=== PATIENT | male | born 1940 | race Asian ===

== ENCOUNTER 2017-05-01 10:48 | Inpatient (IN) | payer MEDICARE, OTHER ==
[~2017-05-01] VITALS: Ht 172.7 cm; Wt 97.6 kg
[~2017-05-01 10:48] MED LIST: ACET-2247 PO; ASPI-1182 PO; ATOR40TA28 PO; DSS100 PO; EPOE10I SQ; ERGO500014 PO; FOLI1CAP2 PO; FURO40 PO; GABA-529 PO; LACT30L PO; LIDO700A15 TP; METO25XL PO; MUPI1OIN4 NS; PHOSLOC PO
[2017-05-01 11:03] LABS: GLUCOSE,POINT OF CARE 127 MG/DL (70-110)
[2017-05-01 13:32] LABS: BASOPHILS % (AUTO) 0.2 % (0.0-2.0); EOSINOPHILS % (AUTO) 1.9 % (1.0-6.0); HEMATOCRIT 32.7 % (41-53); HEMOGLOBIN 11.2 g/dL (13.5-17.5); LYMPHOCYTES # (AUTO) 0.4 K/uL (1.0-4.8); LYMPHOCYTES % (AUTO) 9.2 % (22.0-44.0); MEAN CORPUSCULAR HEMOGLOBIN 33.5 pg (26.0-34.0); MEAN CORPUSCULAR HGB CONC 34.2 G/dL (31.0-37.0); MEAN CORPUSCULAR VOLUME 98 fL (80-100); MONOCYTES # (AUTO) 0.4 K/uL (0.1-1.0); MONOCYTES % (AUTO) 10.5 % (2.0-9.0); NEUTROPHILS # (AUTO) 3.2 K/uL (1.8-7.7); NEUTROPHILS % (AUTO) 78.2 % (40.0-70.0); RED BLOOD CELL COUNT(AUTO) 3.34 MIL/uL (4.50-5.90); RED CELL DISTRIBUTION WIDTH 15.1 % (11.5-14.5); WHITE BLOOD COUNT (AUTO) 4.1 K/uL (4.5-11.0)
[2017-05-01 13:34] LABS: CALCIUM, TOTAL 8.3 mg/dL (8.8-10.5); CREATININE 3.06 mg/dL (0.60-1.30); POTASSIUM 3.8 mmol/L (3.5-5.1)
[2017-05-01 13:41] LABS: LACTIC ACID 0.9 mmol/L (0.4-2.0)
[2017-05-01 13:46] LABS: TROPONIN I 0.04 ng/mL (0.00-0.05)
[2017-05-01 13:47] LABS: ALBUMIN 2.6 g/dL (3.4-5.0); BILIRUBIN,TOTAL 0.9 mg/dL (0.1-1.0); TOTAL PROTEIN, SERUM 6.2 g/dL (6.4-8.2)
[2017-05-01 14:00] LABS: PLATELET COUNT (AUTO) 84 K/uL (150-450)
[2017-05-01] MEDS ORDERED: ACETAMINOPHEN 325 MG TABLET PO PRN (15:15)
[2017-05-01] MEDS ORDERED: ONDANSETRON HCL 4 MG/2 ML VIAL IVP PRN (15:15)
[2017-05-01] MEDS ORDERED: 0.9% SODIUM CHLORIDE 10 ML SYRINGE IVP PRN (15:15)
[2017-05-01 15:34] LABS: INFLUENZA TYPE B NEGATIVE FOR TYPE B (NEGATIVE)
[2017-05-01 16:45] VITALS: BP 133/74
[2017-05-01 18:02] LABS: GLUCOSE,POINT OF CARE 109 MG/DL (70-110)
[2017-05-01 18:38] LABS: APPEARANCE,URINE CLOUDY (CLEAR); GLUCOSE, URINE (UA) NEGATIVE (NEGATIVE); KETONES,URINE NEGATIVE (NEGATIVE); LEUKOCYTE ESTERASE ,URINE MODERATE (NEGATIVE); OCCULT BLOOD,URINE SMALL (NEGATIVE); PH,URINE 7.5 (5.0-8.0); PROTEIN,URINE SEE CONFIRM (NEGATIVE)
[2017-05-01 18:39] LABS: ADD UA MICROSCOPIC YES
[2017-05-01 18:47] LABS: SQUAMOUS EPITHELIAL CELL,UR Few /LPF (None Seen); SULFOSALICYLIC ACID,URINE 3+ (Negative); WBC,URINE 26-50 /HPF (0-5)
[2017-05-01 18:48] VITALS: BP 156/84
[2017-05-01 19:30] VITALS: BP 150/67
[2017-05-02 00:06] VITALS: BP 105/53
[2017-05-02] MEDS ORDERED: SODIUM CHLORIDE 0.9% 500 ML IV ONE (00:15)
[2017-05-02 00:42] LABS: GLUCOSE,POINT OF CARE 105 MG/DL (70-110)
[2017-05-02] MEDS: CefTRIAXone 1 GM/DEXTROSE 50 ML IV SCH ×2 (01:10→23:58)
[2017-05-02] MEDS ORDERED: MUPIROCIN CALCIUM 2% 22 GM OINTMENT NASAL SCH (01:15)
[2017-05-02] MEDS ORDERED: ACETAMINOPHEN 325 MG TABLET PO PRN (01:15)
[2017-05-02] MEDS ORDERED: LACTULOSE 20 GM/30 ML SOLUTION UDCUP PO SCH (01:15)
[2017-05-02] MEDS ORDERED: FUROSEMIDE 40 MG TABLET PO SCH ×2 (01:15→09:00)
[2017-05-02] MEDS ORDERED: DOCUSATE SODIUM 100 MG CAPSULE PO SCH ×3 (01:15→09:00)
[2017-05-02] MEDS ORDERED: ONDANSETRON HCL 4 MG/2 ML VIAL IVP PRN (01:30)
[2017-05-02] MEDS ORDERED: 0.9% SODIUM CHLORIDE 10 ML SYRINGE IVP PRN (01:30)
[2017-05-02] MEDS ORDERED: OxyCODONE HCL/ACETAMINOPHEN 5-325 MG TABLET PO PRN ×2 (01:30)
[2017-05-02 05:18] VITALS: BP 131/83
[2017-05-02] MEDS: LACTULOSE 20 GM/30 ML SOLUTION UDCUP PO SCH ×4 (06:09→20:14)
[2017-05-02 06:44] LABS: BASOPHILS % (AUTO) 0.5 % (0.0-2.0); EOSINOPHILS % (AUTO) 2.9 % (1.0-6.0); HEMATOCRIT 30.1 % (41-53); HEMOGLOBIN 10.5 g/dL (13.5-17.5); LYMPHOCYTES # (AUTO) 0.6 K/uL (1.0-4.8); LYMPHOCYTES % (AUTO) 16.3 % (22.0-44.0); MEAN CORPUSCULAR HEMOGLOBIN 34.3 pg (26.0-34.0); MEAN CORPUSCULAR HGB CONC 34.8 G/dL (31.0-37.0); MEAN CORPUSCULAR VOLUME 99 fL (80-100); MONOCYTES # (AUTO) 0.5 K/uL (0.1-1.0); MONOCYTES % (AUTO) 12.9 % (2.0-9.0); NEUTROPHILS # (AUTO) 2.4 K/uL (1.8-7.7); NEUTROPHILS % (AUTO) 67.4 % (40.0-70.0); PLATELET COUNT (AUTO) 82 K/uL (150-450); RED BLOOD CELL COUNT(AUTO) 3.05 MIL/uL (4.50-5.90); RED CELL DISTRIBUTION WIDTH 15.4 % (11.5-14.5); WHITE BLOOD COUNT (AUTO) 3.6 K/uL (4.5-11.0)
[2017-05-02 07:12] LABS: ALBUMIN 2.4 g/dL (3.4-5.0); BILIRUBIN,TOTAL 0.8 mg/dL (0.1-1.0); CALCIUM, TOTAL 8.1 mg/dL (8.8-10.5); CREATININE 3.91 mg/dL (0.60-1.30); POTASSIUM 3.8 mmol/L (3.5-5.1); TOTAL PROTEIN, SERUM 5.7 g/dL (6.4-8.2)
[2017-05-02 07:44] VITALS: BP 115/55
[2017-05-02] MEDS: PANTOPRAZOLE SODIUM 40 MG/VIAL IVP SCH (08:17)
[2017-05-02] MEDS: ASPIRIN 81 MG EC TABLET PO SCH (08:18)
[2017-05-02] MEDS: VITAMIN B COMP/VIT C/FOLIC ACID CAPSULE PO SCH (08:18)
[2017-05-02] MEDS: LIDOCAINE HCL 5% TRANSDERMAL PATCH TD SCH (08:19)
[2017-05-02] MEDS: CALCIUM ACETATE 667 MG CAPSULE PO SCH ×2 (08:19→17:53)
[2017-05-02] MEDS: METOPROLOL SUCCINATE 25 MG ER TABLET PO SCH (08:20)
[2017-05-02] MEDS: MUPIROCIN CALCIUM 2% 22 GM OINTMENT NASAL SCH ×2 (08:20→20:28)
[2017-05-02] MEDS: FUROSEMIDE 40 MG TABLET PO SCH ×2 (09:00→20:14)
[2017-05-02] MEDS ORDERED: ERGOCALCIFEROL (VIT D2) 50,000 UNITS CAPSULE PO SCH (09:00)
[2017-05-02 15:29] VITALS: BP 136/67
[2017-05-02 20:00] VITALS: BP 143/66
[2017-05-02] MEDS: GABAPENTIN 100 MG CAPSULE PO SCH (20:14)
[2017-05-02] MEDS: ATORVASTATIN CALCIUM 40 MG TABLET PO SCH (20:14)
[2017-05-02] MEDS ORDERED: -LIDODERM PATCH NOTE- MISC SCH ×2 (21:00)
[2017-05-02 23:49] VITALS: BP 142/80
[2017-05-03 04:00] VITALS: BP 131/68
[2017-05-03 05:30] LABS: BASOPHILS % (AUTO) 0.3 % (0.0-2.0); EOSINOPHILS % (AUTO) 3.6 % (1.0-6.0); HEMATOCRIT 30.9 % (41-53); HEMOGLOBIN 10.7 g/dL (13.5-17.5); LYMPHOCYTES # (AUTO) 0.6 K/uL (1.0-4.8); LYMPHOCYTES % (AUTO) 14.8 % (22.0-44.0); MEAN CORPUSCULAR HGB CONC 34.6 G/dL (31.0-37.0); MEAN CORPUSCULAR VOLUME 98 fL (80-100); MONOCYTES # (AUTO) 0.5 K/uL (0.1-1.0); MONOCYTES % (AUTO) 12.5 % (2.0-9.0); NEUTROPHILS # (AUTO) 2.8 K/uL (1.8-7.7); NEUTROPHILS % (AUTO) 68.8 % (40.0-70.0); PLATELET COUNT (AUTO) 83 K/uL (150-450); RED BLOOD CELL COUNT(AUTO) 3.14 MIL/uL (4.50-5.90); RED CELL DISTRIBUTION WIDTH 15.9 % (11.5-14.5); WHITE BLOOD COUNT (AUTO) 4.1 K/uL (4.5-11.0)
[2017-05-03 05:33] LABS: CALCIUM, TOTAL 8.4 mg/dL (8.8-10.5); CREATININE 5.01 mg/dL (0.60-1.30)
[2017-05-03 07:33] VITALS: BP 114/51
[2017-05-03] MEDS: LACTULOSE 20 GM/30 ML SOLUTION UDCUP PO SCH ×4 (08:32→20:35)
[2017-05-03] MEDS: METOPROLOL SUCCINATE 25 MG ER TABLET PO SCH (08:32)
[2017-05-03] MEDS: FUROSEMIDE 40 MG TABLET PO SCH ×2 (08:32→20:35)
[2017-05-03] MEDS: CALCIUM ACETATE 667 MG CAPSULE PO SCH ×2 (08:32→17:59)
[2017-05-03] MEDS: PANTOPRAZOLE SODIUM 40 MG/VIAL IVP SCH (08:32)
[2017-05-03] MEDS: VITAMIN B COMP/VIT C/FOLIC ACID CAPSULE PO SCH (08:33)
[2017-05-03] MEDS: ASPIRIN 81 MG EC TABLET PO SCH (08:34)
[2017-05-03] MEDS: LIDOCAINE HCL 5% TRANSDERMAL PATCH TD SCH ×2 (08:34→08:42)
[2017-05-03] MEDS: MUPIROCIN CALCIUM 2% 22 GM OINTMENT NASAL SCH ×2 (08:44→20:35)
[2017-05-03] MEDS: EPOETIN ALFA 10,000 UNITS/ML VIAL SQ SCH (10:35)
[2017-05-03 12:00] VITALS: BP 131/71
[2017-05-03 15:21] VITALS: BP 139/61
[2017-05-03 19:40] VITALS: BP 139/71
[2017-05-03] MEDS: ATORVASTATIN CALCIUM 40 MG TABLET PO SCH (20:35)
[2017-05-03] MEDS: GABAPENTIN 100 MG CAPSULE PO SCH (20:35)
[2017-05-03 23:08] VITALS: BP 135/65
[2017-05-04] MEDS: CefTRIAXone 1 GM/DEXTROSE 50 ML IV SCH (00:40)
[2017-05-04 04:00] VITALS: BP 141/70
[2017-05-04 07:04] LABS: CALCIUM, TOTAL 8.4 mg/dL (8.8-10.5); CREATININE 6.09 mg/dL (0.60-1.30); MAGNESIUM 2.3 mg/dL (1.80-2.40); PHOSPHORUS 4.1 mg/dL (2.5-4.9); POTASSIUM 4.2 mmol/L (3.5-5.1)
[2017-05-04 07:15] VITALS: BP 129/66
[2017-05-04] MEDS: PANTOPRAZOLE SODIUM 40 MG/VIAL IVP SCH (08:36)
[2017-05-04] MEDS: LACTULOSE 20 GM/30 ML SOLUTION UDCUP PO SCH ×3 (08:36→17:46)
[2017-05-04] MEDS: ASPIRIN 81 MG EC TABLET PO SCH (08:36)
[2017-05-04] MEDS: CALCIUM ACETATE 667 MG CAPSULE PO SCH ×2 (08:36→17:45)
[2017-05-04] MEDS: VITAMIN B COMP/VIT C/FOLIC ACID CAPSULE PO SCH (08:36)
[2017-05-04] MEDS: MUPIROCIN CALCIUM 2% 22 GM OINTMENT NASAL SCH ×2 (08:38→20:18)
[2017-05-04] MEDS: LIDOCAINE HCL 5% TRANSDERMAL PATCH TD SCH (08:39)
[2017-05-04] MEDS: FUROSEMIDE 40 MG TABLET PO SCH ×2 (08:45→20:18)
[2017-05-04] MEDS: METOPROLOL SUCCINATE 25 MG ER TABLET PO SCH (08:45)
[2017-05-04 11:20] VITALS: BP 136/64
[2017-05-04] MEDS ORDERED: SODIUM CHLORIDE 0.9% 2,000 ML IV ONE (11:34)
[2017-05-04] MEDS: RIFAXIMIN 550 MG TABLET PO SCH ×2 (15:35→23:41)
[2017-05-04 15:37] VITALS: BP 148/82
[2017-05-04] MEDS ORDERED: MANNITOL 25%-12.5 GM/50 ML VIAL IVP PRN (17:00)
[2017-05-04 20:00] VITALS: BP 130/61
[2017-05-04] MEDS: GABAPENTIN 100 MG CAPSULE PO SCH (20:18)
[2017-05-04] MEDS: ATORVASTATIN CALCIUM 40 MG TABLET PO SCH (20:18)
[2017-05-04 23:30] VITALS: BP 149/68
[2017-05-05] MEDS: CefTRIAXone 1 GM/DEXTROSE 50 ML IV SCH (01:31)
[2017-05-05 05:00] VITALS: BP 146/79
[2017-05-05] MEDS: LACTULOSE 20 GM/30 ML SOLUTION UDCUP PO SCH ×3 (06:00→12:00)
[2017-05-05 07:33] VITALS: BP 134/62
[2017-05-05] MEDS: PANTOPRAZOLE SODIUM 40 MG/VIAL IVP SCH (07:53)
[2017-05-05] MEDS: FUROSEMIDE 40 MG TABLET PO SCH (07:53)
[2017-05-05] MEDS: ASPIRIN 81 MG EC TABLET PO SCH (07:53)
[2017-05-05] MEDS: VITAMIN B COMP/VIT C/FOLIC ACID CAPSULE PO SCH (07:53)
[2017-05-05] MEDS: CALCIUM ACETATE 667 MG CAPSULE PO SCH (07:53)
[2017-05-05] MEDS ORDERED: LEVO500 PO (07:57)
[2017-05-05] MEDS: RIFAXIMIN 550 MG TABLET PO SCH (07:57)
[2017-05-05] MEDS ORDERED: RIFAX550 PO (07:57)
[2017-05-05] MEDS: MUPIROCIN CALCIUM 2% 22 GM OINTMENT NASAL SCH (07:57)
[2017-05-05] MEDS: METOPROLOL SUCCINATE 25 MG ER TABLET PO SCH (07:57)
[2017-05-05] MEDS: LIDOCAINE HCL 5% TRANSDERMAL PATCH TD SCH (07:59)
[2017-05-05] MEDS: EPOETIN ALFA 10,000 UNITS/ML VIAL SQ SCH (09:49)
[2017-05-05 11:33] VITALS: BP 128/66
== END 2017-05-05 15:15 | disposition home or self-care (01) | DRG 640 ==
LOC: EMS 10:50 → 6N 15:12
PROVIDERS: ADMIT Internal Medicine; ATTEND Internal Medicine
PROC: 5A1D70Z Performance of Urinary Filtration, Intermittent, Less than 6 Hours Per Day (ICD-10-PCS; principal; 2017-05-04)
DX: E87.70 Fluid overload, unspecified (principal); N18.6 End stage renal disease; I13.2 Hypertensive heart and chronic kidney disease with heart failure and with stage 5 chronic kidney disease, or end stage renal disease; E11.22 Type 2 diabetes mellitus with diabetic chronic kidney disease; E11.51 Type 2 diabetes mellitus with diabetic peripheral angiopathy without gangrene; I48.91 Unspecified atrial fibrillation; N39.0 Urinary tract infection, site not specified; D64.9 Anemia, unspecified; R53.1 Weakness; E78.5 Hyperlipidemia, unspecified; I25.10 Atherosclerotic heart disease of native coronary artery without angina pectoris; I50.9 Heart failure, unspecified; Z79.82 Long term (current) use of aspirin; Z79.899 Other long term (current) drug therapy; Z95.1 Presence of aortocoronary bypass graft; Z99.2 Dependence on renal dialysis; Z88.8 Allergy status to other drugs, medicaments and biological substances; Z22.322 Carrier or suspected carrier of Methicillin resistant Staphylococcus aureus
CPT/HCPCS: 82962; 83605; 83735; 84100; 87040; 87081; 87086; 87340; 87804; 90935; 93005; 99285; C9113; J0696; J0885; J7030; J7040

== ENCOUNTER 2019-02-11 16:34 | Emergency (ER) | payer MEDICARE, OTHER ==
[~2019-02-11] VITALS: Ht 182.9 cm; Wt 85.5 kg
[~2019-02-11 16:34] MED LIST changes: -DSS100 PO; +LEVO500 PO; +RIFAX550 PO
[2019-02-11 17:10] LABS: GLUCOSE,POINT OF CARE 120 MG/DL (70-110)
[2019-02-11] MEDS ORDERED: FAMOTIDINE 10 MG/ML 2 ML VIAL IVP ONE (18:00)
[2019-02-11] MEDS ORDERED: PANTOPRAZOLE SODIUM 40 MG/VIAL IVP ONE (18:00)
[2019-02-11 18:25] LABS: BASOPHILS % (AUTO) 1.2 % (0.0-2.0); EOSINOPHILS % (AUTO) 2.6 % (1.0-6.0); HEMOGLOBIN 11.4 g/dL (13.5-17.5); LYMPHOCYTES # (AUTO) 0.4 K/uL (1.0-4.8); LYMPHOCYTES % (AUTO) 8.3 % (22.0-44.0); MEAN CORPUSCULAR HEMOGLOBIN 31.4 pg (26.0-34.0); MEAN CORPUSCULAR HGB CONC 32.6 G/dL (31.0-37.0); MEAN CORPUSCULAR VOLUME 96 fL (80-100); MONOCYTES # (AUTO) 0.4 K/uL (0.1-1.0); MONOCYTES % (AUTO) 8.6 % (2.0-9.0); NEUTROPHILS # (AUTO) 3.9 K/uL (1.8-7.7); NEUTROPHILS % (AUTO) 79.3 % (40.0-70.0); PLATELET COUNT (AUTO) 139 K/uL (150-450); RED BLOOD CELL COUNT(AUTO) 3.63 MIL/uL (4.50-5.90); RED CELL DISTRIBUTION WIDTH 14.6 % (11.5-14.5)
[2019-02-11 18:38] LABS: PROTHROMBIN TIME 10.8 SEC (9.4-11.6)
[2019-02-11 18:39] LABS: CALCIUM, TOTAL 7.9 mg/dL (8.8-10.5); CREATININE 5.75 mg/dL (0.60-1.30); POTASSIUM 4.5 mmol/L (3.5-5.1)
[2019-02-11 18:46] LABS: ALBUMIN 1.8 g/dL (3.4-5.0); BILIRUBIN,TOTAL 1.1 mg/dL (0.1-1.0); TOTAL PROTEIN, SERUM 5.4 g/dL (6.4-8.2)
[2019-02-11] MEDS ORDERED: ONDANSETRON HCL 4 MG/2 ML VIAL IVP PRN (21:45)
[2019-02-11] MEDS ORDERED: 0.9% SODIUM CHLORIDE 10 ML SYRINGE IVP PRN (21:45)
[2019-02-11] MEDS ORDERED: ACETAMINOPHEN 325 MG TABLET PO PRN (21:45)
[2019-02-11 22:18] LABS: GLUCOSE,POINT OF CARE 97 MG/DL (70-110)
[2019-02-11 22:46] VITALS: BP 138/72
== END 2019-02-11 22:49 | disposition left against medical advice (07) ==
LOC: EMS 16:41
DX: K92.1 Melena (principal); K92.2 Gastrointestinal hemorrhage, unspecified; I11.0 Hypertensive heart disease with heart failure; I50.9 Heart failure, unspecified; E11.9 Type 2 diabetes mellitus without complications; Z88.8 Allergy status to other drugs, medicaments and biological substances; Z79.82 Long term (current) use of aspirin
CPT/HCPCS: 36415; 80053; 82270; 82962; 83690; 85025; 85610; 85730; 86850; 86900; 86901; 93005; 96374; 96375; 99285; C9113; J3490

== ENCOUNTER 2019-05-13 14:25 | Emergency (ER) | payer MEDICARE, OTHER ==
[~2019-05-13 14:25] MED LIST changes: -ATOR40TA28 PO; -EPOE10I SQ; -ERGO500014 PO; -FOLI1CAP2 PO; -FURO40 PO; -GABA-529 PO; -LACT30L PO; -LEVO500 PO; -LIDO700A15 TP; -METO25XL PO; -MUPI1OIN4 NS; -RIFAX550 PO
[2019-05-13 14:46] LABS: ABG A-A DIFF O2 568.1 mmHg (10-20.0); ABG BASE EXCESS -10.6 mmol/L (-2.0-3.0); ABG CARBOXYHEMOGLOBIN 1.2 % (0.0-1.5); ABG HCO3 14.6 mmol/L (22.0-26.0); ABG METHEMOGLOBIN 0.3 % (0.0-1.5); ABG OXYGEN CONTENT 7.6 mL/dL (15.0-23.0); ABG OXYHEMOGLOBIN 51.4 % (94.0-100.0); ABG TOTAL HEMOGLOBIN 10.4 G/dL (12.0-18.0); PO2, ARTERIAL BG 43.5 mmHg (75.0-83.0); SOURCE, BLOOD GAS ARTERIAL; TEMPERATURE, FAHRENHEIT, BG 98.6 FAHREN (96.0-98.6)
[2019-05-13 14:48] LABS: ABG PH 6.945 (7.35-7.450); HEMATOCRIT 26.2 % (41-53); HEMOGLOBIN 8.2 g/dL (13.5-17.5); MEAN CORPUSCULAR HEMOGLOBIN 32.1 pg (26.0-34.0); MEAN CORPUSCULAR HGB CONC 31.5 G/dL (31.0-37.0); MEAN CORPUSCULAR VOLUME 102 fL (80-100); PLATELET COUNT (AUTO) 142 K/uL (150-450); RED BLOOD CELL COUNT(AUTO) 2.57 MIL/uL (4.50-5.90); RED CELL DISTRIBUTION WIDTH 16.7 % (11.5-14.5)
[2019-05-13 14:49] LABS: ABG OXYGEN SATURATION 52.2 % (95.0-98.0); ABG PCO2 101 mmHg (35-45)
[2019-05-13 14:50] LABS: O2 DEVICE,BLOOD GAS OTHER (ROOM AIR)
[2019-05-13 14:51] LABS: SITE, BLOOD GAS RT FEMORAL
[2019-05-13 15:00] LABS: ALBUMIN 1.1 g/dL (3.4-5.0); BILIRUBIN,TOTAL 0.8 mg/dL (0.1-1.0); CREATININE 4.65 mg/dL (0.60-1.30); INR 1.8 (0.9-1.1); POTASSIUM 5.9 mmol/L (3.5-5.1); PROTHROMBIN TIME 17.9 SEC (9.4-11.6)
[2019-05-13] MEDS ORDERED: AMIODARONE HCL 360 MG in DEXTROSE 5%-WATER 242.8 ML IV ONE (15:00)
[2019-05-13] MEDS ORDERED: AMIODARONE HCL 150 MG in DEXTROSE 5%-WATER 97 ML IV ONE (15:00)
[2019-05-13] MEDS ORDERED: CefTRIAXone 1 GM/DEXTROSE 50 ML IV SCH (15:00)
[2019-05-13 15:07] LABS: CALCIUM, TOTAL 17.4 mg/dL (8.8-10.5)
[2019-05-13 15:36] LABS: ABG A-A DIFF O2 269.4 mmHg (10-20.0); ABG BASE EXCESS -7.5 mmol/L (-2.0-3.0); ABG CARBOXYHEMOGLOBIN 1.3 % (0.0-1.5); ABG HCO3 18.5 mmol/L (22.0-26.0); ABG METHEMOGLOBIN 0.3 % (0.0-1.5); ABG OXYGEN CONTENT 18.6 mL/dL (15.0-23.0); ABG OXYGEN SATURATION 99.7 % (95.0-98.0); ABG OXYHEMOGLOBIN 98.1 % (94.0-100.0); ABG PCO2 47 mmHg (35-45); ABG PH 7.246 (7.35-7.450); ABG TOTAL HEMOGLOBIN 12.7 G/dL (12.0-18.0); PO2, ARTERIAL BG 397.1 mmHg (75.0-83.0); SOURCE, BLOOD GAS ARTERIAL; TEMPERATURE, FAHRENHEIT, BG 98.6 FAHREN (96.0-98.6)
[2019-05-13 15:39] LABS: BAND NEUTROPHILS % (MANUAL) 13 % (0-5); EOSINOPHILS % (MANUAL) 1 % (1-6); LYMPHOCYTES % (MANUAL) 7 % (22-44); MONOCYTES % (MANUAL) 7 % (2-9); REACTIVE LYMPHOCYTES 5 % (0-0); SEGMENTED NEUTROPHILS % 67 % (40-70)
[2019-05-13 15:41] LABS: PLATELET MORPHOLOGY COMMENT NORMAL
[2019-05-13] MEDS: PHENYLEPHRINE 200 MG/D5%-WATER 250 ML IV PRN (15:47)
[2019-05-13] MEDS: DOPamine HCL 400 MG/D5%-WATER 250 ML IV PRN (15:48)
[2019-05-13] MEDS: NOREPINEPHRINE 4 MG/D5%-WATER 250 ML IV PRN (15:56)
[2019-05-13] MEDS ORDERED: MetroNIDAZOLE 500 MG/NACL 100 ML IV SCH (16:00)
[2019-05-13] MEDS ORDERED: PROPOFOL 1000 MG/ISO-OSM 100 ML IV ONE (17:06)
[2019-05-13] MEDS ORDERED: VASOPRESSIN 40 UNITS in DEXTROSE 5%-WATER 98 ML IV PRN (17:15)
[2019-05-13] MEDS ORDERED: PROPOFOL 1000 MG/ISO-OSM 100 ML IV PRN (17:15)
[2019-05-13 17:19] LABS: O2 DEVICE,BLOOD GAS VENTILATOR (ROOM AIR); SITE, BLOOD GAS RT RADIAL
[2019-05-13 17:20] LABS: PEEP,BG 5 cm H2O; SPONTANEOUS VT, BG 453 ml; VT, ABG 450 ml
[2019-05-13 17:34] VITALS: BP 54/31
[2019-05-13] MEDS ORDERED: CALCIUM CHLORIDE 100 MG/ML 10 ML SYRINGE IVP ONE (17:48)
[2019-05-13] MEDS ORDERED: EPINEPHrine 1:10,000 [1 MG/10 ML] SYRINGE ONE (17:48)
[2019-05-13] MEDS ORDERED: AMIODARONE HCL 50 MG/ML 3 ML VIAL ONE (17:48)
[2019-05-13] MEDS ORDERED: SODIUM BICARBONATE 50 MEQ/50 ML VIAL ONE (17:48)
[2019-05-13] MEDS ORDERED: NALOXONE HCL 1 MG/ML 2 ML SYG ONE (17:48)
[2019-05-13] MEDS ORDERED: HYDROCORTISONE SOD SUCC 100 MG/2 ML VIAL IVP SCH (18:00)
[2019-05-13] MEDS ORDERED: AMIODARONE HCL 540 MG in DEXTROSE 5%-WATER 239.2 ML IV ONE (21:00)
[2019-05-14] MEDS ORDERED: AMIODARONE HCL 750 MG in DEXTROSE 5%-WATER 485 ML IV SCH (14:48)
== END 2019-05-13 20:54 | disposition expired ==
LOC: EMS 14:27 → ICU 15:55 → UNDOADMIN 15:55 → EMS 20:54
DX: I46.9 Cardiac arrest, cause unspecified (principal); I47.2 Ventricular tachycardia; D64.9 Anemia, unspecified; E83.52 Hypercalcemia; D72.829 Elevated white blood cell count, unspecified; I13.2 Hypertensive heart and chronic kidney disease with heart failure and with stage 5 chronic kidney disease, or end stage renal disease; E11.22 Type 2 diabetes mellitus with diabetic chronic kidney disease; N18.6 End stage renal disease; I50.9 Heart failure, unspecified; J96.90 Respiratory failure, unspecified, unspecified whether with hypoxia or hypercapnia; R76.9 Abnormal immunological finding in serum, unspecified; Z99.2 Dependence on renal dialysis
CPT/HCPCS: 31500; 36415; 36556; 36600; 71045; 80053; 82805; 84484; 85025; 85610; 85730; 93005; 93306; 96365; 96368; 99291; J0171; J0282; J2310; J2370; J2704; J3490 ×3; J7060 ×2; 94002; J1720